=== PATIENT | female | born 1985 | race Caucasian/White ===

== ENCOUNTER → 2022-04-10 09:41 | Outpatient (BNVA) | payer OTHER, SELFPAY | PROVIDERS: PCP Internal Medicine; Visit Provider Psychiatry & Neurology Neurology | DX: G43.109 Migraine with aura, not intractable, without status migrainosus (principal) ==

== ENCOUNTER 2024-03-20 09:43 | Outpatient (AMB) | payer BC, SELFPAY ==
[2024-03-20 09:47] VITALS: BP 110/82; BMI 29.8
--- NOTE | 2024-03-20 09:47 | MHC.OFFVIS ---
Vital Signs 03/20/24 09:47 Height 5 ft 5 in Weight 179 lb BMI 29.8 BP 110/82 Blood Pressure Location Rt brachial Position Sitting Intake Visit Reasons: Follow up migraines- Intake Note: Patient presents for migraines. headaches varies Allergies No Known Allergies Allergy (Verified 03/20/24 09:50) HPI Comments Details: 38y/o female comes for follow up after 2 years. her daughter is 3 years old now .she has 2-6 migraine days /month without aura . sometimes her migraines can last 2-3 days. she stopped magnesium and riboflavin. she is on rizatriptan , fioricet , OTC meds .Most migraines responds to Rizatriptan, there are times when she feels like rizatriptan does not work and she needs ibuprofen , fiorciet with it .No aura . Her migraines are usually associated with nausea , light and noise sensitivity. [facility] Medical History Asthma Surgical History [place] teeth removed Hx of tonsillectomy Family History Father COPD (chronic obstructive pulmonary disease) Afib HTN (hypertension) Diabetes Arthritis, rheumatoid Mother HTN (hypertension) Social History Household Members: Children Alcohol intake: never Patient Tobacco Use Status: Never used Tobacco Physical Exam Vital Signs: Last Vital Signs BP 110/82 03/20/24 09:47 BMI result Body Mass Index 29.8 Const Other: speech -normal EOM - normal General: cooperative, healthy appearing and comfortable Nutritional Appearance: average body habitus Orientation/consciousness: patient oriented x3 Neck Neck: Yes full ROM Neuro General: patient oriented x3 Assessment & Plan Assessment & Plan (1) Migraine headache with aura: Code(s): G43.109 - Migraine with aura, not intractable, without status migrainosus Category: Medical Qualifiers: Status migrainosus presence: without status migrainosus Intractability: not intractable Qualified Code(s): G43.109 - Migraine with aura, not intractable, without status migrainosus Plan Restart riboflavin 400mg qam I will trial her on ubrelvy 100mg prn for migraines Resart Magnesium 400mg qhs Maxalt 10mg as needed Fioricet as needed Medications: New ubrogepant (Ubrelvy) 100 mg orally at onset of migraines and repeta in 2 hrs if needed , maximum 2 tabs /day; 14 tabs 6RF Refilled riboflavin (vitamin B2) 400 mg PO QAM 30 tabs 6RF rizatriptan do not exceed 3 doses per 24 hrs 10 mg PO Q2-4H PRN 14 tabs 3RF migraine headache magnesium oxide 250 mg PO DAILY 30 tabs 3RF mqjqtdiuop-mjnwlknvmoiws-fwsm 50-300-40 mg (Fioricet) 1 cap PO Q8H PRN 20 caps 3RF pain Coding Level of Care Code Est Pt Level 4 (07199) Complex EM visit Add On G2211 Diagnoses Migraine with aura and without status migrainosus, not intractable G43.109 Status migrainosus presence: without status migrainosus Intractability: not intractable
== END 2024-03-20 10:24 | disposition home or self-care (01) ==
PROVIDERS: PCP Internal Medicine; Visit Provider Psychiatry & Neurology Neurology
DX: G43.109 Migraine with aura, not intractable, without status migrainosus (principal)
CPT/HCPCS: 99214

== ENCOUNTER → 2024-03-20 09:43 | Outpatient (BNVA) | payer BC, SELFPAY | PROVIDERS: PCP Internal Medicine; Visit Provider Psychiatry & Neurology Neurology ==

== ENCOUNTER 2024-09-20 08:51 | Outpatient (AMB) | payer BC, SELFPAY ==
[2024-09-20 08:54] VITALS: BP 110/78; BMI 30.1
--- NOTE | 2024-09-20 08:54 | MHC.OFFVIS ---
Vital Signs 09/20/24 08:54 Height 5 ft 5 in Weight 181 lb BMI 30.1 BP 110/78 Blood Pressure Location Rt brachial Position Sitting Intake Visit Reasons: Follow up migraines Intake Note: Patient following up for migraines. med trial given ubrelvy Allergies No Known Allergies Allergy (Verified 09/20/24 08:58) HPI Comments Details: 39y/o female comes for follow up after 6 mths . her daughter is 3 years old now .she has 1-2 migraine days /month without aura . sometimes her migraines can last 2-3 days. she restarted magnesium and riboflavin. she is on rizatriptan , fioricet , OTC meds .Most migraines responds to Rizatriptan, there are times when she feels like rizatriptan does not work and she needs ibuprofen , fiorciet with it .No aura . Her migraines are usually associated with nausea , light and noise sensitivity. she reports occasional brief episodes of dizziness 2 episodes a year - lasting few seconds PFSH Medical History Asthma Surgical History [place] teeth removed Hx of tonsillectomy Family History Father COPD (chronic obstructive pulmonary disease) Afib HTN (hypertension) Diabetes Arthritis, rheumatoid Mother HTN (hypertension) Social History Household Members: Children Alcohol intake: never Patient Tobacco Use Status: Never used Tobacco Physical Exam Vital Signs: Last Vital Signs BP 110/78 09/20/24 08:54 BMI result Body Mass Index 30.1 Const Other: speech -normal EOM - normal General: cooperative, healthy appearing and comfortable Nutritional Appearance: average body habitus Orientation/consciousness: patient oriented x3 Neck Neck: Yes full ROM Neuro General: patient oriented x3 Assessment & Plan Assessment & Plan (1) Migraine headache with aura: Code(s): G43.109 - Migraine with aura, not intractable, without status migrainosus Category: Medical Qualifiers: Status migrainosus presence: without status migrainosus Intractability: not intractable Qualified Code(s): G43.109 - Migraine with aura, not intractable, without status migrainosus Plan riboflavin 400mg qam Magnesium 400mg qhs Maxalt 10mg as needed Fioricet as needed Ubrelvy was not approved Patient has been tried on Topiramate Amitriptyline sumatriptan Coding Level of Care Code Est Pt Level 4 (35503) Diagnoses Migraine with aura and without status migrainosus, not intractable G43.109 Status migrainosus presence: without status migrainosus Intractability: not intractable
--- OUTSIDE RECORDS SUMMARY | 2024-09-20 09:13 | XMS_ITS | Patient Health Record ---
Author Organization [facility] Address [address] [address] Care Team Providers Care Frog Shaker Name Role Phone Umesh Rosas Primary Care Provider SASCHA Sarkar Unavailable [phone] Allergies Allergen (clinical drug ingredient) Drug/Non Drug Allergy documented on EMR Reaction Allergy Type Onset Date Status Pet Dander (uncoded) Unknown Allergy Active Seasonal Allergies (uncoded) Unknown Allergy Active Tree Nuts Unknown Allergy Active Reason For Referral No Information Medications Medication SIG (Take, Route, Frequency, Duration) Notes Start Date End Date Status Terbinafine HCl 250 MG 1 tablet Orally O nce a day for 90 day(s) 09/30/2021 Not-Taking Terbinafine HCl 250 MG 1 tablet Orally O nce a day for 30 days 02/02/2022 Not-Taking Vitamin D Active Betamethasone Dipropionate 0.05 % 1 application Externally Once a day Active Albuterol Sulfate 108 (90 Base) MCG/ACT 1 puff as needed Inhalation every 4 hrs Active Magnesium 250 MG 1 tablet with a meal Orally Once a day Active ZyrTEC Allergy 10 MG 1 tablet Orally Onc e a day Not-Taking Efinaconazole 10 % 1 application to toenails Externally Once a day for 365 days 05/12/2022 Not-Taki ng Ciclopirox 8 % 1 application Externally to toenail Once a day for 365 days 05/27/2022 Not-Taki ng Vital Signs Height 5ft 5in in 05/17/2024 Weight 176.9 lbs 05/17/2024 BMI 29.43 kg/m2 05/17/2024 Procedures Procedure Date Ordered Date Performed Result Body Sit e Removal of nail matrix 05/17/2024 N/A Encounters Encounter Location Date Provider Diagnosis [facility] [address] [address] 05/17/2024 SASCHA FISHERALLEY Ingrown toenail L60.0 and Pain around toenail, right foot M79.674 [facility] [address] [address] 05/24/2024 SACSHA BRANDT Assessments Encounter Date Diagnosis (ICD Code) Assessment Notes Treatment Notes Treatment Clinical Notes Section Notes 05/17/2024 Ingrown toenail (ICD-10 - L60.0) Patient was seen and examined, history reviewed. I spent approximately 30 minutes [id number] with the patient. Discussed treatment options for ingrown toenails in detail. This consisted of soaking in Epsom salts twice daily, oral antibiotics to treat infection, partial nail avulsion to remove affecting border, and permanent nail avulsion using phenol. A decision was made to perform permanent avulsions to the medial and lateral borders of the right hallux toenail. This was done under local anesthetic today. She tolerated this well. I advised that there will be some increased redness, swelling, and drainage to the chemical application sites. This can take up to 4 weeks to scab over.. She can clean the toe daily with warm soapy water, use aquaphore and a bandage for the next couple of weeks. I will see her back in 3-4 weeks if needed. I encouraged her to call if she has any questions or concerns. 05/17/2024 Pain around toenail, right foot (ICD-10 - M79.674) Plan Of Treatment Pending Test Test Name Order Date Hepatic Function Panel (7) 09/08/2021 Nail avulsion partial/complete 3 Removal of nail matrix 05/17/2024 PUNCH BX SKIN SINGLE LESION 05/20/2022 HEPATIC FUNCTION PANEL 11/11/2021 Medical (General) History Medical History History ICD Code Uterine Anomoly Dyslipidemia Childhood Asthma Migraine Headaches w/ Aura Vitamin D Deficiency + COVID 03/2022 not COVID vaccinated Hospitalization History Reason Date(Month/Year) Vaginal Delivery
== END 2024-09-20 09:27 | disposition home or self-care (01) ==
LOC: HO.HSMS 08:52
PROVIDERS: PCP Internal Medicine; Visit Provider Psychiatry & Neurology Neurology
DX: G43.109 Migraine with aura, not intractable, without status migrainosus (principal)
CPT/HCPCS: 99214

== ENCOUNTER 2025-03-22 09:00 | Outpatient (AMB) | payer BC, SELFPAY ==
--- NOTE | 2025-03-22 09:01 | A.OFFVIS_ITS ---
Vital Signs 03/22/25 09:02 Height 5 ft 5 in Weight 185 lb 8 oz BMI 30.9 BP 110/76 Blood Pressure Location Rt brachial Position Sitting Pulse 88 Pulse Source Auscultation Pulse Oximetry (%) 99 Oxygen Delivery Method Room Air Intake Visit Reasons: 6mon follow-up Intake Note: Follow up Migraine with aura and without status migrainosus, not intractable Supervisor [employer] Required: No Accompanied by: Self / Same As Patient Allergies No Known Allergies Allergy (Verified 03/22/25 09:02) Medication List - Last Reconciled 03/22/25 by Judith Carvajal MD albuterol sulfate 90 mcg/actuation 0 mcg inhalation grxghkvgyd-ozriegqtamknt-ahxh 50-300-40 mg (Fioricet) 1 cap PO Q8H PRN rizatriptan 10 mg PO Q2-4H PRN ubrogepant (Ubrelvy) 100 mg orally at onset of migraines and repeta in 2 hrs if needed , maximum 2 tabs /day; HPI Comments Details: 39y/o female comes for follow up.Migraines are fairly controlled . she has few mths with 1-2 migraine days per month.she is responding to maxalt most of the time. There are times when she needs NSAID with maxalt or fioricet . she has 3-4 times a year where she is not responding to maxalt.she stopped magnesium and riboflavin History from 6 mths ago-her daughter is 3 years old now .she has 1-2 migraine days /month without aura . sometimes her migraines can last 2-3 days. she restarted magnesium and riboflavin. she is on rizatriptan , fioricet , OTC meds .Most migraines responds to Rizatriptan, there are times when she feels like rizatriptan does not work and she needs ibuprofen , fiorciet with it .No aura . Her migraines are usually associated with nausea , light and noise sensitivity. she reports occasional brief episodes of dizziness 2 episodes a year - lasting few seconds PFSH Medical History Asthma Surgical History [place] teeth removed Hx of tonsillectomy Family History Father COPD (chronic obstructive pulmonary disease) Afib HTN (hypertension) Diabetes Arthritis, rheumatoid Mother HTN (hypertension) Social History Household Members: Children Alcohol intake: never Patient Tobacco Use Status: Never used Tobacco Physical Exam Vital Signs: Last Vital Signs Pulse 88 03/22/25 09:02 BP 110/76 03/22/25 09:02 Pulse Ox 99 03/22/25 09:02 Oxygen Delivery Method Room Air 03/22/25 09:02 BMI result Body Mass Index 30.9 Const Other: speech -normal EOM - normal General: cooperative, healthy appearing and comfortable Nutritional Appearance: average body habitus Orientation/consciousness: patient oriented x3 Neck Neck: Yes full ROM Neuro General: patient oriented x3 Assessment & Plan Assessment & Plan (1) Migraine headache with aura: Code(s): G43.109 - Migraine with aura, not intractable, without status migrainosus Category: Medical Qualifiers: Status migrainosus presence: without status migrainosus Intractability: not intractable Qualified Code(s): G43.109 - Migraine with aura, not intractable, without status migrainosus Plan restart Magnesium 250mg qhs Maxalt 10mg as needed Fioricet as needed will retrial Ubrelvy 50 mg as needed - patient has new insurance suggested prednisone taper for unresponsive migraines Patient has been tried on Topiramate Amitriptyline sumatriptan Medications: Refilled ubrogepant (Ubrelvy) 100 mg orally at onset of migraines and repeta in 2 hrs if needed , maximum 2 tabs /day; 14 tabs 6RF Coding Level of Care Code Est Pt Level 4 (37439) Diagnoses Migraine with aura and without status migrainosus, not intractable G43.109 Status migrainosus presence: without status migrainosus Intractability: not intractable
[2025-03-22 09:02] VITALS: BP 110/76; PULSE 88; O2SAT 99; BMI 30.9
--- OUTSIDE RECORDS SUMMARY | 2025-03-22 09:47 | XMS_ITS | Patient Health Record ---
Author Organization [facility] Address [address] [facility] [address] [place] [address] Care Team Providers Care Biofuels Production Associate Name Role Phone Umesh Rosas Primary Care Provider SASCHA Sarkar Unavailable [phone] Allergies Allergen (clinical drug ingredient) Drug/Non Drug Allergy documented on EMR Reaction Allergy Type Onset Date Status Pet Dander (uncoded) Unknown Allergy Active Seasonal Allergies (uncoded) Unknown Allergy Active Tree Nuts Unknown Allergy Active Reason For Referral No Information Medications Medication SIG (Take, Route, Frequency, Duration) Notes Start Date End Date Status Terbinafine HCl 250 MG 1 tablet Orally O nce a day; Duration: 90 day(s) 09/30/2021 Not-Taking Terbinafine HCl 250 MG 1 tablet Orally O nce a day; Duration: 30 days 02/02/2022 Not-Takin g Vitamin D Active Betamethasone Dipropionate 0.05 % [...] 1 application to toenails Externally Once a day; Duration: 365 days 05/12/2022 Not-Taking Ciclopirox 8 % 1 application Externally to toenail Once a day; Duration: 365 days 05/27/2022 Not-Taking Vital Signs Height 5ft 5in in 05/17/2024 Weight 176.9 lbs 05/17/2024 BMI 29.43 kg/m2 05/17/2024 Procedures Procedure Date Ordered Date Performed Result Body Sit e Removal of nail matrix 05/17/2024 N/A Encounters Encounter Location Date Provider Diagnosis [facility] [address] [address] 05/17/2024 SASCHA FISHERALLEY Ingrown toenail L60.0 and Pain around toenail, right foot M79.674 [facility] [address] [address] 05/24/2024 SASCHA BRANDT Assessments Encounter Date Diagnosis (ICD Code) Assessment Notes Treatment Notes Treatment Clinical Notes Section Notes 05/17/2024 Ingrown toenail (ICD-10 - L60.0) Patient was seen and examined, history reviewed. I spent approximately 30 minutes [id number] with the patient. Discussed treatment options for [...]
--- OUTSIDE RECORDS SUMMARY | 2025-03-22 09:47 | XMS_ITS | Encounter Summary ---
Author Organization [facility] Address [address] [place] [address] [place] [phone] Phone Care Team Providers Care Digital Analytics Manager Name Role Phone Pcp, Unknown Primary Care Provider Unavailabl e Encounter Details Date Type Department Care Team (Late st Contact Info) Description 01/04/2025 Procedure Pass [facility], [facility] [address] [place] [address] Social History Tobacco Use Types Packs/Day Years Used Date Smoking Tobacco: Never Smokeless Tobacco: Never Alcohol Use Standard Drinks/Week Comments Not Currently 0 (1 standard drink = 0.6 oz pur e alcohol) Rarely Education Answer Date Recorded Are you interested in more education? Not on kole e 08/14/2022 Are you concerned about learning? Not on file 08/14/2022 No 08/14/2022 No 08/14/2022 Digital Access Answer Date Recorded No 09/12/2022 No 09/12/2022 Reliable internet access at home? Not on file 09/12/2022 Device with a working camera? Not on file Comments No Sex and Gender Information Value Date Recorded Sex Assigned at Not on file Legal Sex Female 8:41 AM EST Gender Identity Not on file Sexual Orientation Not on file documented as of this encounter Plan of Treatment Not on file documented as of this encounter Visit Diagnoses Not on filedocumented in this encounter Care Teams Digital Analytics Manager Relationship Specialty Start Date End Date Pcp, Unknown PCP - General 04/26/19 documented as of this encounter Additional Source Comments The information contained in this document represents components of the legal health record. It is not the complete legal health record.[facility]
--- OUTSIDE RECORDS SUMMARY | 2025-03-22 09:47 | XMS_ITS | Encounter Summary ---
Author Organization [facility] Address [address] [place] [address] [place] [phone] Phone Care Team Providers Care Paper Core Machine Operator Name Role Phone Pcp, Unknown Primary Care Provider Unavailabl e Encounter Details Date Type Department Care Team (Late st Contact Info) Description 01/04/2025 Procedure Pass [facility], [facility] [address] [place] [address] Social History Tobacco Use Types Packs/Day Years [...] on filedocumented in this encounter Care Teams Paper Core Machine Operator Relationship Specialty Start Date End Date Pcp, Unknown PCP - General 04/26/19 documented as of this encounter Additional Source Comments The information contained in this document represents components of the legal health record. It is not the complete legal health record.[facility]
--- OUTSIDE RECORDS SUMMARY | 2025-03-22 09:47 | XMS_ITS | Clinical Summary ---
Author Organization [address] Address [address] [place] [phone] Phone Care Team Providers Care Medical Management Specialist Name Role Phone Umesh Rosas MD Primary Care Provider [phone] Allergies Active Allergy Reactions Criticality Noted Date Comments Nut - Unspecified Itching Low 07/24/2014 Oral itching Medications albuterol HFA (PROAIR HFA ; PROVENTIL HFA ; VENTOLIN HFA) 90 mcg/actuation inhaler Inhale 2 puffs by mouth every 4 (four) hours if needed for shortness of breath. 6.7 g 1 4 Active betamethasone, augmented, (DIPROLENE) 0.05 % ointment 2 Active rizatriptan (MAXALT) 10 mg tablet Take 1 tablet (10 mg total) by mouth 1 (one) time if needed. Active doxycycline hyclate (VIBRA-TABS) 100 mg tablet Take 1 tablet (100 mg total) by mouth 2 (two) times a day. 5 Active mupirocin (BACTROBAN) 2 % ointment Apply topically 3 (three) times a day. 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 Seasonal allergies 07/24/2014 Vitamin D deficiency 07/24/2014 Immunizations Immunization Administration Dates Next Due Hepatitis A Adult (Havrix; Vaqta) 19yo and older 07/26/2017 Influenza Quadravalent, MDCK , 0.5ml, preservative free (Flucelvax) 6mo and older 01/31/2020 Influenza Quadravalent, MDCK , 0.5ml, with preservative (Flucelvax) 6mo and older 01/23/2018 Tdap Tetanus diptheria acell ular pertussis (Boostrix; Adacel) 7yo and older 05/24/2020,04/19/2012 Typhoid VICPS (Typhim Vi) 2yo and older 07/27/19 18 Surgical History Surgery Date Site/Laterality Comments TONSILLECTOMY PROCEDURE: HISTORICAL TONSILLECTOMY WISDOM TOOTH EXTRACTION PROCEDURE: HISTORICAL WISDOM TEETH EXTRACTION; COMMENT: all 4 ADENOIDECTOMY PROCEDURE: HISTORICAL ADENOIDECTOMY OTHER SURGICAL HISTORY PROCEDURE: ---- OTHER ----; COMMENT: removal of benign cyst from under left armpit Medical History Medical History Date Comments Asthma 07/24/2014 DX:Asthma; COMME NT: albuterol Migraine headache with aura 07/24/2014 DX:M igraine headache with aura Seasonal allergies 07/24/2014 DX:Seasonal a llergies Vitamin D deficiency 07/24/2014 DX:Vitamin D deficiency History of non anemic vitami n B12 deficiency 08/02/2014 DX:History of non anemic vit trammell B12 deficiency Family History Medical History Relation Name Comments Other: graves disease Aunt matern al Ankylosing spondylitis Brother 1 half brot her share dad arthritis No Known Problems Brother 2 half brother s hare dad Cataracts Father Diabetes Father pill Emphysema Father Hyperlipidemia Father Hypertension Father Other: afibrillation Father Rheum arthritis Father No Known Problems Maternal Grandfather Other: ?Hypertension Maternal Grandmother Other: acute coronary Maternal Grandmother Colon cancer Mother stage 0 colon C a contained in polyp which was removed. Hypertension Mother Other: anxiety Mother Strabismus Mother No Known Problems Paternal Grandfather Heart attack Paternal Grandmother Blindness Neg Hx Breast cancer Neg Hx Cervical cancer Neg Hx Glaucoma Neg Hx Macular degeneration Neg Hx Ovarian cancer Neg Hx Pancreatic cancer Neg Hx Prostate cancer Neg Hx Uterine cancer Neg Hx Relation Name Status Comments Aunt Alive Brother 1 half brother share dad Alive Brother 2 half brother share dad Alive Father Maternal Grandfather Alive Maternal Grandmother Alive Mother Alive Paternal Grandfather Paternal Grandmother Social History Tobacco Use Types Packs/Day Years Used Date Smoking Tobacco: Never Smokeless Tobacco: Never Alcohol Use Standard Drinks/Week Comments No 0 (1 standard drink = 0.6 oz pur e alcohol) Housing Instability Answer Date Recorde d Are you worried that in the next 2 months you may not have stable housing? No 11/29/2024 Food Access & Nutrition Answer Date Rec orded Do you have access to a vari ety of food including fruits and vegetables? Yes 11/29/2024 Access to Healthcare Answer Date Record ed Within the last 3 months, ho w many times did you visit the emergency department for your medical care? 1 11/29/2024 Health Literacy Answer Date Recorded How often do you need to hav e someone help you when you read instructions, pamphlets, or other written material from your doctor or pharmacy? Never 11/29/2024 Caregiver: How often do you need to have someone help you when you read instructions, pamphlets, or other written material from your doctor or pharmacy? Not on file 11/29/2024 Financial Risk Answer Date Recorded How hard is it for you to pa y for the very basics like food, housing, medical care, and air conditioning / heating? Not very hard 11/29/2024 Transportation Answer Date Recorded Has the lack of transportati on kept you from meetings, work, or from getting things needed for daily living? No Has the lack of transportati on kept you from medical appointments or from getting medications? No 11/29/2024 Social Isolation Answer Date Recorded How often do you feel lonely or isolated from th ose around you? Never 11/29/2024 Food Risk Answer Date Recorded Within the past 12 months we worried whether our food would run out before we got money to buy more. Never true 11/29/2024 Within the past 12 months th e food we bought just didn't last and we didn't have money to get more. Never true 11/29/2024 Dependent Care Answer Date Recorded Do you need help finding or paying for care for your loved ones. For example, child care associate teacher or elderly care for an older adult? No 11/29/2024 Education Answer Date Recorded Do you think completing more education or training, like finishing a GED, going to college, or learning a trade, would be helpful for you? N/A 11/29/2024 Employment and Income Answer Date Recor ded During the last four weeks, have you been actively looking for work? No 11/29/2024 Living Situation Answer Date Recorded What is your living situation? Unrecognized valu e 11/29/2024 Comments Unknown Sex and Gender Information Value Date Recorded Sex Assigned at Not on file Legal Sex Female 12:33 AM EST Gender Identity Not on file Sexual Orientation Not on file Obstetrics History Last Filed Vital Signs Vital Sign Reading Time Taken Comments Blood Pressure 108/80 11/30/2024 9:10 AM EDT Pulse 89 11/30/2024 9:10 AM EDT Temperature 36.4 C (97.5 F) 11/30/2024 9:10 AM EDT Respiratory Rate 12 11/30/2024 9:10 AM EDT Oxygen Saturation - - Inhaled Oxygen Concentration - - Weight 81.6 kg (180 lb) 11/30/2024 9:10 AM EDT Height 165.1 cm (5' 5 ) 11/30/2024 9:10 AM EDT Body Mass Index 29.95 11/30/2024 9:10 AM EDT Plan of Treatment Upcoming Encounters Date Type Department Care Team (Late st Contact Info) Description 11/30/2025 9:00 AM EDT Office Visit Adult Medicine [facility] [address] [place] [address] Umesh Rosas MD [address] [place] [address] Health Maintenance Due Date Last Done Comments Hepatitis B Vaccines (1 of 3 - 19+ 3-dose series) 2004 Pneumococcal Vaccine: Pediatrics (0 to 5 Years) and At-Risk Patients (6 to 49 Years) (1 of 2 - PCV) 2004 HPV Vaccines (1 - 3-dose SCD M series) 2012 COVID-19 Vaccine (1 - 2024-2 6 season) 2024 Influenza Vaccine (#1) 2024 , 01/23/2019, 01/23/2018 Cervical Cancer Screening: HPV 08/29/2025 08/29/2020 Social Influencers of Health Screening 11/29/2025 11/29/2024 Colorectal Cancer Screening: Colonoscopy 09/30/2027 09/29/2022 Cholesterol Screening (Lipid Panel) 12/01/2029 12/01/2024, 03/07/2018 DTaP,Tdap,and Td Vaccines (3 - Td or Tdap) 05/24/2030 05/24/2020, 04/19/2012 RSV Immunization Adult Patients (1 - 1-dose 75+ series) 2060 Hepatitis A Vaccines Aged Out 07/26/2017 No long er eligible based on patient's age to complete this topic HIV Screening Completed 01/23/2020 Hepatitis C Screening Completed 01/23/2020 Depression Screening Completed 11/29/2024 HIB Vaccines Aged Out No longer eligi ble based on patient's age to complete this topic IPV Vaccines Aged Out No longer eligi ble based on patient's age to complete this topic MMR Vaccines Aged Out No longer eligi ble based on patient's age to complete this topic Meningococcal ACWY Vaccine Aged Out N o longer eligible based on patient's age to complete this topic Meningococcal B Vaccine Aged Out No l onger eligible based on patient's age to complete this topic RSV Immunization Patients Under 20 months Aged Out No longer eligible b ased on patient's age to complete this topic Varicella Vaccines Aged Out No longer eligible based on patient's age to complete this topic Procedures Procedure Name Priority Date/Time Associated Diagnosis Comments LIPID PANEL WITH REFLEX TO DIRECT LDL Routine 12/01/2024 8:15 AM EDT Routine general medical examination at a health care facility COLONOSCOPY Routine 09/29/2022 HPV Routine 08/29/2020 HEPATITIS C SCREENING Routine 01/23/2020 HIV SCREENING Routine 01/23/2020 from Last 3 Months or Most Recently Relevant to Health Maintenance Results * (ABNORMAL) Lipid panel with reflex to direct LDL (12/01/2024 8:15 AM EDT) Cholesterol 234(H) 0 - 200 mg/dL LAB CHEMISTRY METHOD [facility] Triglycerides 73 0 - 150 mg/dL LAB CHEMISTRY METHOD 12/01/2024 11:34 AM [facility] HDL 69 >=40 mg/dL LAB CHEMISTRY METHOD 12/01/2024 11:34 AM [facility] LDL Calculated 150(H) 0 - 100 mg/dL LAB CHEMISTRY METHOD 12/01/2024 11:34 AM [facility] Comment:Estimated LDL Calcul ated using equation: Total cholesterol - HDL cholesterol - (Triglycerides/5) VLDL Cholesterol German 14.6 mg/dL LAB CHEMISTRY METHOD 12/01/2024 11:34 AM [facility] Non HDL Chol. (LDL+VLDL) 165(H) <145 mg/dL LAB CHEMISTRY METHOD 12/01/2024 11:34 AM [facility] Chol/HDL Ratio 3.4 0.0 - 4.4 LAB CHEMISTRY METHOD 12/01/2024 11:34 AM [facility] Blood Venous blood specimen / Unknown Venipuncture / Unknown 12/01/2024 8:15 AM EDT 12/01/2024 8:15 AM EDT us Umesh Rosas MD LAB BLOOD ORDERABLES Final Resul t [facility] [address] [place] [address], [place] [phone] * Colonoscopy (09/29/2022) Colonoscopy No Interpretation , Abstracted Anatomical Region Laterality Modality Other Historical Provider HEALTH MAINTENANCE Final Result * Cervical Cancer Screening: HPV (08/29/2020) Cervical Cancer Screening: HPV Negative, Abstracted Historical Provider HEALTH MAINTENANCE Final Result * HIV Screening (01/23/2020) [facility] HIV Screening Abstracted [facility] Provider HEALTH MAINTENANCE Final Result * Hepatitis C Screening (01/23/2020) Pathologist [facility] Hepatitis C Screening Abstracted [facility] Provider HEALTH MAINTENANCE Final Result from Last 3 Months or Most Recently Relevant to Health Maintenance [place] [address] Care Teams Medical Management Specialist Relationship Specialty Start Date End Date Umesh Rosas MD [address] [place] [id number] PCP - General Internal Medicine 02/17/19
--- OUTSIDE RECORDS SUMMARY | 2025-03-22 09:47 | XMS_ITS | Clinical Summary ---
Author Organization [facility] Address [address] [facility] [address] [place] [phone] Phone Care Team Providers Care [employer] Name Role Phone Pcp, Unknown Primary Care Provider Unavailabl e Allergies Active Allergy Reactions Criticality Noted Date Comments Shellfish Containing Products Swelling 2019 Tree Nuts Hives,Swelling 05/15/2019 Medications butalbital-aceta minophen-caffein e (FIORICET, ESGIC) 50-325-40 mg per tablet butalbital- acetaminoph en-caffeine 50 mg-325 mg-40 mg tablet Active rizatriptan (MAXALT) 10 MG tablet Take 10 mg by mouth as needed for migraine. May repeat in 2 hours if needed Active albuterol 90 mcg/actuation inhaler Inhale 2 puffs into the lungs. 02/23/2024 Active clobetasol (TEMOVATE) 0.05 % cream 12/13/2024 Active Active Problems Problem Noted Date Diagnosed Date Breast pain, right 01/04/2025 Overview (01/04/2025): For 4-6 weeks, exam benign Assessment & Plan (01/04/2025 2:56 PM EDT): Dx imaging discussed- if all normal and pain persists, f/u consult with breast surgeon/specialist Cervical high risk HPV (human papillomavirus) te st positive 05/16/2019 Overview (05/01/2024): 2016: NIL/HPV pos 2017: NIL (HPV not done), TZ absent 2019: NIL/HPV pos, TZ absent -> colpo 05/2019 benign 2020: NIL/HPV neg (done at [facility] visit) 2021: NIL/HPV neg Plan: repeat in 2025 Assessment & Plan (05/16/2019 11:01 AM EST): Reviewed HPV infection in general: standard to perform cotesting q5 years for routine surveillance in women over 30 yo. Follow up screening is dependent on results. ASCCP guidelines recommend repeat cotesting 12 months after a NIL/HPV pos pap. Dayron has had three normal pap smears with two of the three demonstrating positive HPV. We discussed that a positive result on pap does not provide information about timing of exposure. We also discussed that most healthy women will clear HPV in 8-12 months but reactivation can occur at any time. There are also women who are chronic carriers of HPV with normal cytology. In this setting, I would recommend colposcopy to ensure that the cervix is normal particularly bc the transformation zone was absent on the two most recent smears. We discussed overall low risk (<5%) of underlying severe dysplasia. We reviewed the procedure for colposcopy with possible ECC and/or biopsy. All questions answered, Dayron will schedule. Resolved Problems Problem Noted Date Diagnosed Date Resolved Date Breast pain 09/01/2019 04/06/2022 Assessment & Plan (09/01/2019 9:58 AM EDT): Recommend an office exam, need that to see if imaging indicated; if pain completely resolves, then can forego the exam (she is really worried re COVID) If resolves then recurs, would again advise exam Encounters Date Type Department Care Team Description 01/24/2025 10:26 AM EDT - 01/24/2025 11:59 PM EDT Hospital Encounter [address] [address] Colleen Quezada MD Discharge Disposition: Home or Self Care 01/24/2025 10:26 AM EDT - 01/24/2025 11:59 PM EDT Hospital Encounter [address] [place] [address] Colleen Quezada MD Discharge Disposition: Home or Self Care 01/04/2025 2:10 PM EDT Office Visit [facility] [address] [place] [address] [place] [address] Colleen Quezada MD Breast pain, right (Primary Dx) 01/04/[address] [facility], Ultrasound - [address] [address] 01/04/[address] [facility], Mammography- [address] [address] from Last 3 Months Immunizations Immunization Administration Dates Next Due Influenza Quadrivalent MDCK Preservative Free IM 01/31/2020 Influenza Quadrivalent MDCK w/Preservative IM Influenza Quadrivalent Preservative Free IM 10/2018 Tdap 05/24/2020 Family History Medical History Relation Comments Diabetes Father Heart failure Father Hyperlipidemia Father Hypertension Father Rheumatoid arthritis Father Cancer Mother Colon cancer Mother HTN (hypertension) Mother Breast cancer Neg Hx Relation Status Comments Father Maternal Grandfather Alive Maternal Grandmother Alive Mother Alive Paternal Grandfather Paternal Grandmother Social History Tobacco Use Types Packs/Day Years Used Date Smoking Tobacco: Never Smokeless Tobacco: Never Tobacco Cessation:Counseling Given: Not Answered Alcohol Use Standard Drinks/Week Comments Not Currently [...] on file Sexual Orientation Not on file Last Filed Vital Signs Vital Sign Reading Time Taken Comments Blood Pressure 116/80 01/04/2025 2:15 PM EDT Pulse - - Temperature - - Respiratory Rate - - Oxygen Saturation - - Inhaled Oxygen Concentration - - Weight 80.3 kg (177 lb) 01/04/2025 2:15 PM EDT Height 165.1 cm (5' 5 ) 01/04/2025 2:15 PM EDT Body Mass Index 29.45 01/04/2025 2:15 PM EDT Plan of Treatment Health Maintenance Due Date Last Done Comments DEPRESSION SCREENING 1997 HEPATITIS C SCREENING 09/17/2003 HIV ONE-TIME SCREENING (18-6 5 YEARS) 09/17/2003 SCREENING FOR DIABETES 2020 INFLUENZA VACCINE (#1) 2024 , 01/23/2019, 01/23/2018 COVID-19 VACCINE ( - 2024-2 6 season) 2024 PAP SMEAR 04/06/2027 04/06/2022, 04/11/2019 Adult Td,Tdap Booster 05/24/2030 05/24/2020 , 04/19/2012 HEPATITIS A VACCINES Aged Out 07/26/2017 No long er eligible based on patient's age to complete this topic SMOKING STATUS SCREENING (On ce After 26 Yrs) Completed 01/24/2025 HIB VACCINES Aged Out No longer eligi ble based on patient's age to complete this topic MENINGOCOCCAL VACCINES (ACWY) Aged Out No longer eligible based on patient's age to complete this topic MENINGOCOCCAL VACCINES (B) Aged Out N o longer eligible based on patient's age to complete this topic PNEUMOCOCCAL VACCINES (0-49 years) Aged Out No longer eligible b ased on patient's age to complete this topic Medical Devices Not on file Procedures Procedure Name Priority Date/Time Associated Diagnosis Comments BI US BREAST LIMITED (RIGHT) Routine 01/24/2025 11:57 AM EDT Breast pain, right BI MAMMOGRAM DIAGNOSTIC WITH TOMOSYNTHESIS WITH CAD (BILATERAL) Routine 01/24/2025 11:16 AM EDT Breast pain, right PAP TEST Routine 04/06/2022 12:00 AM EST from Last 3 Months or Most Recently Relevant to Health Maintenance Results * BI US BREAST LIMITED (RIGHT) (01/24/2025 11:57 AM EDT) Anatomical Region Laterality Modality Breast Right, Breast Bilateral Right U ltrasound 01/24/2025 11:1 9 AM EDT Impressions 01/24/2025 12:00 PM EDT 1. No imaging findings to account for the clinical symptoms of right breast pain. Management of breast pain should be based on the level of clinical concern. Negative imaging findings should not preclude biopsy of any clinically suspicious finding. 2. No mammographic evidence of malignancy in either breast. The patient may resume annual screening mammography. BI-RADS 1 NEGATIVE Results and recommendations were communicated to the patient at time of examination. Narrative 01/24/2025 12:00 PM EDT BI MAMMOGRAM DIAGNOSTIC WITH TOMOSYNTHESIS WITH CAD (BILATERAL), BI US BREAST LIMITED (RIGHT) Additional patient information: 39-year-old female presents with focal right breast pain. COMPARISON: This is a baseline examination. Breast composition: There are scattered areas of fibroglandular density. FINDINGS: Right Mammogram: There is no focal or suspicious mammographic correlate for the area of clinical concern. No abnormal masses, suspicious calcifications, or other significant findings are identified mammographically in the right breast. Right Ultrasound: Targeted ultrasound was performed in the area of clinical concern as indicated by the patient. No sonographic abnormality is seen. Left Mammogram: No abnormal masses, suspicious calcifications, or other significant findings are identified mammographically in the left breast. Colleen Quezada MD IM US BREAST Final Result * BI MAMMOGRAM DIAGNOSTIC WITH TOMOSYNTHESIS WITH CAD (BILATERAL) (01/24/2025 11:16 AM EDT) Anatomical Region Laterality Modality Breast Left, Breast Right, Breast Bilateral Bila teral Mammography 01/24/2025 11:1 9 AM EDT Impressions 01/24/2025 12:00 PM EDT 1. No imaging findings to account for the clinical symptoms of right breast pain. Management of breast pain should be based on the level of clinical concern. Negative imaging findings should not preclude biopsy of any clinically suspicious finding. 2. No mammographic evidence of malignancy in either breast. The patient may resume annual screening mammography. BI-RADS 1 NEGATIVE Results and recommendations were communicated to the patient at time of examination. Narrative 01/24/2025 12:00 PM EDT BI MAMMOGRAM DIAGNOSTIC WITH TOMOSYNTHESIS WITH CAD (BILATERAL), BI US BREAST LIMITED (RIGHT) Additional patient information: 39-year-old female presents with focal right breast pain. COMPARISON: This is a baseline examination. Breast composition: There are scattered areas of fibroglandular density. FINDINGS: Right Mammogram: There is no focal or suspicious mammographic correlate for the area of clinical concern. No abnormal masses, suspicious calcifications, or other significant findings are identified mammographically in the right breast. Right Ultrasound: Targeted ultrasound was performed in the area of clinical concern as indicated by the patient. No sonographic abnormality is seen. Left Mammogram: No abnormal masses, suspicious calcifications, or other significant findings are identified mammographically in the left breast. Procedure Note Mack Rausch MD - 01/24/2025 BI MAMMOGRAM DIAGNOSTIC WITH TOMOSYNTHESIS WITH CAD (BILATERAL), BI USBREAST LIMITED (RIGHT) Additional patient information: 39-year-old female presents with focalright breast pain. COMPARISON: This is a baseline examination. Breast composition: There are scattered areas of fibroglandular density. FINDINGS: Right Mammogram: There is no focal or suspicious mammographic correlate for the area ofclinical concern. No abnormal masses, suspicious calcifications, or othersignificant findings are identified mammographically in the rightbreast. Right Ultrasound: Targeted ultrasound was performed in the area ofclinical concern as indicated by the patient. No sonographic abnormalityis seen. Left Mammogram: No abnormal masses, suspicious calcifications, or other significantfindings are identified mammographically in the left breast. IMPRESSION: 1. No imaging findings to account for the clinical symptoms of rightbreast pain. Management of breast pain should be based on the level ofclinical concern. Negative imaging findings should not preclude biopsy ofany clinically suspicious finding. 2. No mammographic evidence of malignancy in either breast. The patientmay resume annual screening mammography. BI-RADS 1 NEGATIVE Results and recommendations were communicated to the patient at time ofexamination. Colleen Quezada MD IMG MG EXAMS Final Result * Pap Smear (04/06/2022 12:00 AM EST) 04/06/2022 04/07/2022 10: 08 AM EST Narrative SEE NARRATIVE - 04/15/2022 11:31 [place] [address] Experimental Welder: Angelica Pace MD EQUIPMENT TECH Cytology Report FINAL DIAGNOSIS A. PAP SMEAR (SUREPATH) CE: SPECIMEN ADEQUACY: Satisfactory for evaluation; transformation zone present. Evaluation limited by scant cellularity. INTERPRETATION: NEGATIVE FOR INTRAEPITHELIAL LESION OR MALIGNANCY. Electronically Signed Out By: CATIA Oliveira(ASCP) CATIA Quarles(ASCP) The Pap test is a screening test primarily for squamous cancers and precursors and has associated false-negative and false-positive results. New technologies such as liquid-based preparations may decrease but will not eliminate all false-negative results. Regular sampling and follow-up of unexplained clinical signs and symptoms are recommended to minimize false negative results. PROCEDURES/ADDENDA HPV Testing (Requested) Ordered Date: 04/07/2022 A. PAP SMEAR (SUREPATH) CE: Human Papilloma Virus Test Negative for high-risk human papillomavirus types 16, 18, 45 and the Other high risk probe set (Includes 31, 33, 35, 39, 51, 52, 56, 58, 59, 66, 68) by [employer] On[employer]arity HR-HPV analysis. Clinical correlation is advised. This HPV test was performed at [facility], [address] [place] [address]. This test has been FDA approved for SurePath cervical cytology specimens. The accuracy and precision of this test for all other specimen sources has been verified in the Cytopathology Laboratory of the [facility] and has not been cleared or approved by the U.S. Food and Drug Administration. Clinical correlation is advised. CLINICAL HISTORY Date of Last Menstrual Period: 03-28-2022 Infection History: HPV Other Clinical Conditions: Screening Pap SPECIMEN SOURCE A: PAP SMEAR (SUREPATH) CE Patient Name: DAYRON MOROCHO : 1985 (Age: 36) Sex: F Institution: [facility] Location: [facility] Date of Collection: 04/06/2022 Date of Reported: 04/15/2022 11:31 Results to: Mary Irizarry MD us Mary Irizarry MD CYTOLOGY ORDERABLES Final Res ult SEE NARRATIVE from Last 3 Months or Most Recently Relevant to Health Maintenance Insurance [facility] OUT OF [facility] OUT OF [facility] [address] [address] [place] [id number] [address] [facility] [address] [address] [place] [address] OUT [facility] [place] [address] [place] [address] CROSS OUT OF STATE PPO BLUE [employer] OUT OF STATE PPO Care Teams [employer] Relationship Specialty Start Date End Date Pcp, Unknown PCP - General 04/26/19 Additional Source Comments The information contained in this document represents components of the legal health record. It is not the complete legal health record.[facility]
== END 2025-03-22 09:33 | disposition home or self-care (01) ==
LOC: HO.HSMS 09:00
PROVIDERS: PCP Internal Medicine; Visit Provider Psychiatry & Neurology Neurology
DX: G43.109 Migraine with aura, not intractable, without status migrainosus (principal)
CPT/HCPCS: 99214